=== PATIENT | female | born 1960 | race Caucasian/White ===

== ENCOUNTER 2017-07-06 07:25 | Day surgery (SDC) | payer OTHER ==
[~2017-07-06] VITALS: Ht 167.6 cm; Wt 75.3 kg
== END 2017-07-06 09:20 | disposition short-term general hospital (02) ==
LOC: SURGOP 07:25
PROC: 0DJD8ZZ Inspection of Lower Intestinal Tract, Via Natural or Artificial Opening Endoscopic (ICD-10-PCS; principal; 2017-07-06)
DX: Z12.11 Encounter for screening for malignant neoplasm of colon (principal); E03.9 Hypothyroidism, unspecified; M19.90 Unspecified osteoarthritis, unspecified site; Z80.0 Family history of malignant neoplasm of digestive organs; Z79.899 Other long term (current) drug therapy; Z90.49 Acquired absence of other specified parts of digestive tract
CPT/HCPCS: J2250